=== PATIENT | female | born 1995 | race Caucasian/White ===

== ENCOUNTER 2021-05-27 14:55 | Emergency (ER) | payer OTHER ==
[2021-05-27 19:34] LABS: BASOPHIL 0.3 % (0-2); EOSINOPHIL 0.9 % (0-5); HCT 40.5 % (37.0-47.0); HGB 12.7 g/dl (12.5-16.0); MCH 22.5 pg (25.0-31.0); MCHC 31.4 g/dL (32.0-36.0); MCV 71.8 fL (78.0-100.0); MONOCYTE 4.6 % (0-12); MPV 10.5 fL (6.0-9.5); NEUTROPHIL 76.6 % (41-80); NRBC 0; PLT 410 K/uL (150-400); RBC 5.64 M/uL (4.20-5.40); WBC 22.1 K/uL (4.0-10.5)
[2021-05-27 19:45] LABS: ALBUMIN 4.3 g/dL (3.4-5.0); BILIRUBIN - TOTAL 0.2 mg/dL (0.2-1.0); BUN/CREAT RATIO (CALC) 13.6 RATIO; CREATININE 0.66 mg/dL (0.51-0.95); GLOBULIN (CALCULATION) 4.1 g/dL; POTASSIUM 3.6 mmol/L (3.5-5.1); TOTAL PROTEIN 8.4 g/dL (6.4-8.2)
[2021-05-27 22:17] LABS: BILIRUBIN NEGATIVE (NEGATIVE); BLOOD TRACE-INTACT Ery/uL (NEGATIVE); CLARITY CLEAR (CLEAR); COLOR YELLOW (YELLOW); GLUCOSE (U) NORMAL (NORMAL); LEUKOCYTES NEGATIVE Leu/uL (NEGATIVE); NITRITE NEGATIVE (NEGATIVE); PROTEIN NEGATIVE (NEGATIVE); UROBILINOGEN 0.2 mg/dL (0.2-1.0); pH 5.5 (5.0-9.0)
[2021-05-27] MEDS ORDERED: METRONIDAZOLE500 MG PO (22:19)
[2021-05-27] MEDS ORDERED: CIPRO500 MG PO (22:19)
[2021-05-27 22:47] LABS: URINARY WBC RARE
== END 2021-05-27 22:37 | disposition home or self-care (01) ==
LOC: FER 14:55
PROVIDERS: Emergency Medicine
DX: R10.84 Generalized abdominal pain (principal); F17.210 Nicotine dependence, cigarettes, uncomplicated; Z86.2 Personal history of diseases of the blood and blood-forming organs and certain disorders involving the immune mechanism; Z87.42 Personal history of other diseases of the female genital tract; Z98.890 Other specified postprocedural states
CPT/HCPCS: 36415; 80053; 81001; 83690; 85025; J1170; J2405; J7030; Q9967

== ENCOUNTER → 2021-08-16 | Day surgery (SDC) | payer OTHER ==
[~2021-08-16] VITALS: Ht 167.6 cm; Wt 90.7 kg
[~2021-08-16] MED LIST: CIPRO500 MG PO; METRONIDAZOLE500 MG PO; OXTELLAR XR300 MG PO; PHENTERMINE H37.5 M1 PO; QUETIAPINE FUMA25 MG PO; SERTRALINE HCL100 MG PO; VRAYLAR1.5 MG PO
[2021-08-16 09:55] LABS: HCG (URINE) SCREEN NEGATIVE (NEGATIVE)
== END | disposition home or self-care (01) ==
LOC: FAS 08:17
PROVIDERS: Anesthesiology
DX: A04.72 Enterocolitis due to Clostridium difficile, not specified as recurrent (principal); K60.2 Anal fissure, unspecified; A49.02 Methicillin resistant Staphylococcus aureus infection, unspecified site; K62.5 Hemorrhage of anus and rectum; K62.89 Other specified diseases of anus and rectum; K58.0 Irritable bowel syndrome with diarrhea; F17.200 Nicotine dependence, unspecified, uncomplicated; E28.2 Polycystic ovarian syndrome; F32.A Depression, unspecified; F41.9 Anxiety disorder, unspecified; K21.9 Gastro-esophageal reflux disease without esophagitis; E03.9 Hypothyroidism, unspecified; Z88.8 Allergy status to other drugs, medicaments and biological substances; Z79.2 Long term (current) use of antibiotics; Z79.899 Other long term (current) drug therapy; Z80.3 Family history of malignant neoplasm of breast; Z82.49 Family history of ischemic heart disease and other diseases of the circulatory system; Z72.89 Other problems related to lifestyle
CPT/HCPCS: 84703; 93005; J2250; J2704; J7120

== ENCOUNTER → 2021-09-24 | Day surgery (SDC) | payer OTHER ==
[~2021-09-24] VITALS: Ht 167.6 cm; Wt 90.7 kg
[~2021-09-24] MED LIST changes: +ACETAMINOPHEN500 M1 PO; +MOTRIN600 MG PO; +PRAZOSIN HCL2 MG PO
[2021-09-24 06:41] LABS: HCG (URINE) SCREEN NEGATIVE (NEGATIVE)
== END | disposition home or self-care (01) ==
LOC: FAS 06:17
PROVIDERS: Anesthesiology
DX: K60.2 Anal fissure, unspecified (principal); A04.72 Enterocolitis due to Clostridium difficile, not specified as recurrent
CPT/HCPCS: 84703; J0585-JG; J2250; J2405; J2704